=== PATIENT | female | born 1995 | race Caucasian/White ===

== ENCOUNTER → 2017-07-08 | Outpatient (CLI) | payer BC ==
[2017-07-08 15:02] LABS: URINE APPEARANCE CLEAR (CLEAR); URINE BILIRUBIN NEG (NEG); URINE COLOR YELLOW; URINE NITRITE NEG (NEG); URINE SPECIFIC GRAVITY 1.025 (1.000-1.030); UROBILINOGEN NEG (NEG)
[2017-07-08 15:11] LABS: MANUAL MICROSCOPIC REQUIRED? NO; REVIEW REQ? NO
== END | disposition home or self-care (01) ==
LOC: C.LABSPEC 13:35
PROVIDERS: ATTEND Obstetrics & Gynecology
DX: Z34.01 Encounter for supervision of normal first pregnancy, first trimester (principal); Z3A.00 Weeks of gestation of pregnancy not specified

== ENCOUNTER → 2017-07-11 | Outpatient (CLI) | payer BC ==
[2017-07-13 13:55] LABS: CHLAMYDIA TRACH RNA*** NOT DETECTED (NOT DETECTED); GC (NEIS GONORRHOEAE)RNA** NOT DETECTED (NOT DETECTED)
== END | disposition home or self-care (01) ==
LOC: C.LABSPEC 15:56
PROVIDERS: ATTEND Obstetrics & Gynecology
DX: Z34.01 Encounter for supervision of normal first pregnancy, first trimester (principal)

== ENCOUNTER → 2017-11-22 | Outpatient (CLI) | payer OTHER ==
[2017-11-22 16:42] LABS: HEMATOCRIT 36.1 % (37-47); HEMOGLOBIN 12.1 g/dL (12.0-16.0)
== END | disposition home or self-care (01) ==
LOC: C.LAB1850 15:46
PROVIDERS: ATTEND Obstetrics & Gynecology
DX: Z34.03 Encounter for supervision of normal first pregnancy, third trimester (principal); Z3A.00 Weeks of gestation of pregnancy not specified

== ENCOUNTER 2022-04-14 20:24 | Inpatient (IN) ==
[2022-04-14] MEDS ORDERED: LIDOCAINE 1% LOCAL 20 ML VIAL INFIL PRN (21:57)
[2022-04-14] MEDS ORDERED: OXYTOCIN 30 UNITS/500 ML BAG IV PRN (21:57)
[2022-04-14] MEDS ORDERED: LACTATED RINGER'S 1,000 ML IV PRN (21:57)
[2022-04-14 22:35] LABS: Hematocrit (blood only) 34.9 % (34.1-44.9); Hemoglobin 11.2 g/dl (12.0-16.0); Mean Corpuscular Hemoglobin 26.8 pg (25.0-34.0); Mean Corpuscular Hgb Conc 32.1 g/dL (32.0-36.0); Mean Corpuscular Volume 83.5 fL (80.0-100.0); Mean Platelet Volume 11.8 fL (9.4-12.3); Platelet Count 190 K/uL (130-400); RDW Coefficient of Variation 13.9 % (11.5-14.5); RDW Standard Deviation 42.5 fL (36.4-46.3); Red Blood Count 4.18 M/uL (3.93-5.22); White Blood Count 9.39 K/ul (4.8-10.8)
--- NOTE | 2022-04-15 03:01 | Delivery Summary ---
Vaginal Delivery Summary Date of Service April 15, 2022 Vaginal Delivery Summary Spontaneous vaginal delivery the patient presented in active labor group B strep negative this was her third baby 39 weeks she was initially 3 cm progressed to 4 cm and then water brought broke spontaneously she rapidly progressed to fully dilated delivered baby in occiput anterior position mouth and nares were suctioned after delivery of the head was a loose nuchal cord passed over the head gentle traction on the baby no excessive force live vigorous male delivered with gentle traction cord clamped after pulsations stopped cord cut cord blood obtained small first-degree tear repaired with 3-0 Vicryl placenta removed with gentle traction IV Pitocin started uterine tone was excellent bleeding minimal sponge and instrument counts correct estimated blood loss 250 mL
[2022-04-15] MEDS ORDERED: oxyCODONE/ACETAMINOPHEN 5mg/325mg TAB PO PRN (05:34)
[2022-04-15] MEDS ORDERED: HYDROCORTISONE ACETATE 25 MG SUPP PR PRN (05:34)
[2022-04-15] MEDS ORDERED: DIPHTHERIA/TETANUS/PERTUSSIS 0.5 ML SYR/VIAL IM ONE (05:34)
[2022-04-15] MEDS ORDERED: OXYTOCIN 30 UNITS/500 ML BAG IV PRN (05:34)
[2022-04-15] MEDS ORDERED: BENZOCAINE 20% AER SPR 82.5 GM CAN EXT PRN (05:34)
[2022-04-15] MEDS ORDERED: bisacodyL 10 MG SUPP PR PRN (05:34)
[2022-04-15] MEDS: PRENATAL VITAMIN 1 TAB PO SCH (08:07)
[2022-04-15] MEDS: DOCUSATE SODIUM 100 MG CAP PO SCH ×2 (08:07→20:51)
[2022-04-15] MEDS: IBUPROFEN 600 MG TAB PO PRN ×3 (08:08→19:36)
[2022-04-15] MEDS: ACETAMINOPHEN 325 MG TAB PO PRN ×2 (10:23→17:29)
[2022-04-16] MEDS: IBUPROFEN 600 MG TAB PO PRN ×2 (00:11→08:41)
--- NOTE | 2022-04-16 05:46 | Obstetrical Progress Note ---
Date of Service April 16, 2022 Assessment & Plan (1) Encounter for care and examination after delivery: 26 yo PP1 from , doing well -Meeting all pp milestones -A+/rubella immune/ -f/u 6 weeks for appt, desires d/c home today and ok to do so Subjective Ambulation: ambulating normally Voiding: no voiding problems Passing Gas:: Yes Diet Tolerance:: regular diet Lochia:: Small Feeding Type:: breast feeding Pain well managed with medication Review of Systems Denies fevers, chills, n/v, BAILON, CP, SOB Physical Exam Constitutional WD/WN, vitals as above no acute distress Respiratory normal respiratory effort, lungs clear to auscultation Cardiovascular RRR, no murmur, no edema Gastrointestinal (Abdomen) Percussion/Palpation: abdomen soft; abdomen nontender fundus firm at umbilicus and NT Musculoskeletal BLE symmetric, nonerythematous, nontender Results & Data ([facility]) Vital Signs (Past 12 Hours) Vital Signs Temp Pulse Resp BP O2 Del Method 04/16/22 00:00 97.5 F L 74 18 100/63 04/15/22 18:29 98.2 F 87 16 102/68 Room Air
[2022-04-16 08:31] LABS: Hematocrit (blood only) 31.3 % (34.1-44.9); Hemoglobin 9.7 g/dl (12.0-16.0); Mean Corpuscular Hemoglobin 26.3 pg (25.0-34.0); Mean Corpuscular Volume 84.8 fL (80.0-100.0); Mean Platelet Volume 11.8 fL (9.4-12.3); Platelet Count 166 K/uL (130-400); RDW Coefficient of Variation 13.9 % (11.5-14.5); RDW Standard Deviation 42.8 fL (36.4-46.3); Red Blood Count 3.69 M/uL (3.93-5.22); White Blood Count 8.68 K/ul (4.8-10.8)
[2022-04-16] MEDS: DOCUSATE SODIUM 100 MG CAP PO SCH (08:41)
[2022-04-16] MEDS: PRENATAL VITAMIN 1 TAB PO SCH (08:41)
[2022-04-16] MEDS ORDERED: bisacodyL 5 MG TABEC PO SCH (20:00)
== END 2022-04-16 11:17 | disposition home or self-care (01) | DRG 807 ==
LOC: OPB 20:24 → 4S1 20:25 → 4E2 04-15 05:37

== ENCOUNTER 2024-05-11 23:44 | Inpatient (IN) ==
[2024-05-12] MEDS ORDERED: LIDOCAINE 1% LOCAL 20 ML VIAL INFIL PRN (00:02)
[2024-05-12] MEDS ORDERED: LACTATED RINGER'S 1,000 ML IV PRN (00:02)
[2024-05-12] MEDS ORDERED: OXYTOCIN 30 UNITS/NSS 30 UNITS/500 ML BAG IV PRN (00:02)
--- NOTE | 2024-05-12 00:06 | Labor Progress Brief Note ---
Date of Service May 12, 2024 Subjective Contractions since 8pm, stronger since 10pm. No LOF, no VB, good FM. Multip, h/o NCB x3, prefers exp mgmt and unmedicated labor. Assessment & Plan (1) Normal labor: Plan: Exp mgmt, admit, anticipate . Physical Exam Genitourinary: /-2/soft/mid FHT Cat 1 Strum Q2-4 Results & Data Vital Signs (Past 12 Hours) Vital Signs Pulse BP 05/11/24 23:50 75 115/73 Coding Level of Care Code None Diagnoses Normal labor O80; Z37.9
[2024-05-12 00:59] LABS: Hematocrit (blood only) 35.4 % (37.0-47.0); Hemoglobin 11.2 g/dl (12.0-16.0); Mean Corpuscular Hemoglobin 26.7 pg (25.0-34.0); Mean Corpuscular Hgb Conc 31.6 g/dL (32.0-36.0); Mean Corpuscular Volume 84.3 fL (80.0-100.0); Mean Platelet Volume 11.8 fL (9.4-12.4); Platelet Count 196 K/uL (130-400); RDW Coefficient of Variation 14.6 % (11.5-14.5); RDW Standard Deviation 44.5 fL (36.4-46.3)
[2024-05-12] MEDS: OXYTOCIN 30 UNITS/NSS 30 UNITS/500 ML BAG IV PRN (02:47)
--- NOTE | 2024-05-12 03:04 | Delivery Summary ---
Vaginal Delivery Summary Date of Service May 12, 2024 Vaginal Delivery Summary DIAGNOSES: 1. Walters intrauterine at 39w2d gestation. 2. Spontaneous onset of labor. 3. Group B Streptococcus Neg. PROCEDURE: Spontaneous vaginal delivery without laceration. SURGEON: Britney Dixon MD. SHOT MAN: None. ESTIMATED BLOOD LOSS: 350 mL. COMPLICATIONS: None. PLACENTA: Spontaneous and intact with a 3-vessel cord. DISPOSITION: Stable to labor and delivery. DESCRIPTION: Patient declined anesthesia, labored spontaneously, and soon began having involuntary pushing efforts. Her cervix was 9cm when checked during her involuntary pushing, and she remained intact. SROM occurred within the next few contractions after that exam. Significant meconium staining to the fluid and solid meconium passing as well. She reached 10/100/+1 with the next contra ction. The patient was then given the go-ahead to push in earnest. She pushed well in her preferred L Lateral position, with RN and FOB supporting her legs, and brought the head quickly to in OA position. The infant's head showed a "turtle sign" as delivery from forehead to chin took longer than average, and the head restituted ROP. There was one tight loop of nuchal cord reduced at the perineum. The next pushes did not effect delivery of the head, and the mother was advised that we needed her to reposition onto her back, despite her plan stating she did not want to use that position. She did comply. No and Suprapubic Pressure were employed and with the next two pushes, the 's anterior / LEFT shoulder delivered. A slight pop was appreciated. The remainder of the body delivered without any difficulty, and the infant was placed on the bed between the maternal legs on the fluid- gathering drape, where it was seen and heard to immediately make respiratory effort, and to show some movement of each upper limb and hand. Bulb suction was immediately provided given thick meconium present. The cord was doubly clamped by the MD and then cut by the FOB. Infant was then handed off to Heavenly for attention at the warmer. See resuscitation documentation from nursery for details, but notably a significant volume of meconium fluid was obtained with DeLee suction. Patient is also noted to be on 50mg PO zoloft daily, dose confirmed in the room for pediatric team benefit. The placenta delivered spontaneously and was noted to be intact and with a 3VC. The cervix, vagina and perineum were examined and were found to be without defect requiring repair. The fundus was firm and lochia minimal immediately after delivery. Infant was breathing spontaneously and pink, but receiving CPAP support, and was transferred to nursery for post-resuscitation care. Briefing on the infant's status was given to the FOB by Heavenly and I relayed the same information to mom directly. [facility] Vaginal Delivery Charge Vaginal Delivery Codes: 98511 global code for the antepartum, delivery, and post-
[2024-05-12] MEDS ORDERED: HYDROCORTISONE ACETATE 25 MG SUPP PR PRN (03:55)
[2024-05-12] MEDS ORDERED: bisacodyL 10 MG SUPP PR PRN (03:55)
[2024-05-12] MEDS ORDERED: oxyCODONE/ACETAMINOPHEN 5mg/325mg TAB PO PRN (03:55)
[2024-05-12] MEDS ORDERED: ACETAMINOPHEN 325 MG TAB PO PRN (03:55)
[2024-05-12] MEDS ORDERED: BENZOCAINE 20% SPRY 85 APPLN/85 GM CAN EXT PRN (03:55)
[2024-05-12] MEDS: IBUPROFEN 600 MG TAB PO PRN (04:11)
[2024-05-12] MEDS: DIPHTHER/TETAN/PERTUS Vaccine (Tdap, Adol/Adult) 0.5mL IM ONE (04:12)
[2024-05-12] MEDS ORDERED: CALCIUM CARBONATE 500 MG CHEWABLE TAB PO PRN (04:32)
[2024-05-12] MEDS: PRENATAL VITAMIN 1 TAB PO SCH (08:30)
[2024-05-12] MEDS: DOCUSATE SODIUM 100 MG CAP PO SCH (08:30)
[2024-05-12] MEDS: SERTRALINE HCL 50 MG TABLET PO SCH (08:30)
[2024-05-12 22:51] VITALS: O2SAT 96
[2024-05-13 06:48] LABS: Hematocrit (blood only) 31.6 % (37.0-47.0); Hemoglobin 10.2 g/dl (12.0-16.0); Mean Corpuscular Hgb Conc 32.3 g/dL (32.0-36.0); Mean Corpuscular Volume 83.6 fL (80.0-100.0); Platelet Count 195 K/uL (130-400); RDW Coefficient of Variation 14.7 % (11.5-14.5); RDW Standard Deviation 44.7 fL (36.4-46.3); Red Blood Count 3.78 M/uL (4.20-5.40)
--- NOTE | 2024-05-13 08:38 | Obstetrical Progress Note ---
Date of Service May 13, 2024 Assessment & Plan (1) Encounter for care and examination after delivery: satisfactory exam follow up in 6 weeks discharge today Subjective Ambulation: ambulating normally Voiding: no voiding problems Passing Gas:: Yes Diet Tolerance:: regular diet Lochia:: Small Feeding Type:: breast feeding Review of Systems All systems reviewed & are unremarkable except as noted in HPI & below Physical Exam Constitutional WD/WN, vitals as above Psychiatric A+Ox3, euthymic affect Genitourinary OB Exam Abdomen: + fundal height Fundus: + firm and + relation to umbilicus (2 below) Results & Data Vital Signs (Past 12 Hours) Vital Signs Temp Pulse Resp BP Pulse Ox O2 Del Method 05/12/24 22:50 98.4 F 82 16 111/76 96 Room Air
[2024-05-13 09:49] VITALS: BP 111/70; PULSE 71; RESP 18; TEMP 98.2
[2024-05-13] MEDS ORDERED: bisacodyL 5 MG TABEC PO SCH (20:00)
== END 2024-05-13 13:15 | disposition home or self-care (01) | DRG 807 ==
LOC: OPB 23:44 → 4S1 23:45 → 4E2 05-12 05:10